=== PATIENT | female | born 1985 | race Caucasian/White ===

== ENCOUNTER → 2018-08-11 | Outpatient (CLI) | payer OTHER ==
[~2018-08-11] MED LIST: ALBU90OI INH; AMOX500 PO; HYDACE5 PO; IBUP800 PO; MULVITMINE PO; NAPR500 PO; OXYACE5T PO; POTCHL20ER PO; PROM25 PO; PROM6.25SY PO; RXCLIN PO; RXPROMSY PO; TRAM50 PO; Vistaril25 MG PO; Zofran Odt4 MG SL
== END ==
LOC: LAB EV 10:23 → LAB SHORT 10:23
DX: K52.9 Noninfective gastroenteritis and colitis, unspecified (principal)
CPT/HCPCS: 87086

== ENCOUNTER 2018-10-13 10:49 | Emergency (ER) | payer OTHER ==
[~2018-10-13] VITALS: Ht 154.9 cm; Wt 98.4 kg
[2018-10-13] MEDS ORDERED: Tamiflu75 MG PO (11:49)
== END 2018-10-13 11:54 | disposition home or self-care (01) ==
LOC: ER 10:49
DX: J11.1 Influenza due to unidentified influenza virus with other respiratory manifestations (principal)
CPT/HCPCS: 87081; 87147; 99283

== ENCOUNTER 2018-10-15 23:03 | Emergency (ER) | payer OTHER ==
[~2018-10-15] VITALS: Ht 157.5 cm; Wt 98.4 kg
[~2018-10-15 23:03] MED LIST changes: +Tamiflu75 MG PO
== END 2018-10-15 23:54 | disposition home or self-care (01) ==
LOC: ER 23:03
DX: M25.511 Pain in right shoulder (principal); F41.9 Anxiety disorder, unspecified; Z87.891 Personal history of nicotine dependence; Z79.899 Other long term (current) drug therapy; W19.XXXA Unspecified fall, initial encounter
CPT/HCPCS: 73030; 99283-25

== ENCOUNTER 2019-03-24 16:20 | Emergency (ER) | payer SELFPAY ==
[~2019-03-24] VITALS: Ht 154.9 cm; Wt 97.5 kg
== END 2019-03-24 19:40 | disposition left against medical advice (07) ==
LOC: ER 16:20
DX: Z53.21 Procedure and treatment not carried out due to patient leaving prior to being seen by health care provider (principal)

== ENCOUNTER 2020-12-23 12:46 | Emergency (ER) | payer OTHER ==
[~2020-12-23] VITALS: Ht 160 cm; Wt 104.3 kg
[2020-12-23] MEDS ORDERED: CYCL10 PO (14:38)
[2020-12-23] MEDS ORDERED: OMEP20ER PO (14:38)
[2020-12-23] MEDS ORDERED: EPIPEN0.3 MG/0.3 IM (15:18)
== END 2020-12-23 15:45 | disposition home or self-care (01) ==
LOC: ER 12:46
DX: T78.1XXA Other adverse food reactions, not elsewhere classified, initial encounter (principal); Z87.891 Personal history of nicotine dependence
CPT/HCPCS: 36415; 96374; 96375; 99283-25; J1200; J2930

== ENCOUNTER → 2022-08-24 | Outpatient (CLI) | payer OTHER ==
[~2022-08-24] MED LIST changes: +CYCL10 PO; +EPIPEN0.3 MG/0.3 IM; +OMEP20ER PO
[2022-08-24 16:35] LABS: BASOPHILS ABSOLUTE AUTO 0.02 K/mm3 (0.00-0.23); BASOPHILS PERCENT AUTO 0 % (0-2); EOSINOPHILS ABSOLUTE AUTO 0.08 K/mm3 (0.00-0.68); EOSINOPHILS PERCENT AUTO 1 % (0-6); Hematocrit 41.5 % (33.0-51.0); IMMATURE GRAN ABSOLUTE AUTO 0.02 K/mm3 (0.00-0.10); IMMATURE GRAN PERCENT AUTO 0 % (0-1); LYMPHOCYTES ABSOLUTE AUTO 1.98 K/mm3 (0.84-5.20); LYMPHOCYTES PERCENT AUTO 28 % (21-46); MONOCYTES ABSOLUTE AUTO 0.61 K/mm3 (0.16-1.47); MONOCYTES PERCENT AUTO 9 % (4-13); Mean Corpuscular HGB 30.9 pg (26.0-34.0); Mean Corpuscular HGB Conc 33.7 g/dL (31.5-36.5); Mean Corpuscular Volume 92 fL (80-100); Mean Platelet Volume 9.3 fL (9.1-12.4); NEUTROPHILS ABSOLUTE AUTO 4.43 K/mm3 (1.96-9.15); NEUTROPHILS PERCENT AUTO 62 % (41-73); Platelet Count 340 K/mm3 (150-400); RDW Coefficient Variation 12.6 % (11.7-14.2); RDW Standard Deviation 42.5 fL (35.1-46.3); Red Blood Cell Count 4.53 M/mm3 (3.80-5.20); White Blood Cell Count 7.14 K/mm3 (4.00-11.30)
[2022-08-24 16:49] LABS: Albumin, Blood 3.8 g/dL (3.4-5.0); Albumin/Globulin Ratio 0.9 (0.8-1.8); Bilirubin, Total 0.2 mg/dL (0.1-1.0); Calcium, Blood 9.3 mg/dL (8.5-10.1); Creatinine, Blood 0.6 mg/dL (0.40-1.00); Globulin, Blood 4.2 g/dL (2.2-4.0); Potassium, Blood 3.8 mmol/L (3.5-5.5)
== END | disposition home or self-care (01) ==
LOC: LAB 16:27 → LAB SHORT 16:27
PROVIDERS: Emergency Medicine
DX: R10.11 Right upper quadrant pain (principal)
CPT/HCPCS: 80053; 83690; 85025

== ENCOUNTER → 2022-10-12 | Outpatient (CLI) | payer OTHER | END | disposition home or self-care (01) | LOC: LAB SHORT 09:33 → LAB 09:33 | DX: R10.11 Right upper quadrant pain (principal) | CPT/HCPCS: 87338 ==

== ENCOUNTER 2023-03-22 13:46 | Emergency (ER) | payer OTHER ==
[~2023-03-22] VITALS: Ht 157.5 cm; Wt 102.5 kg
[2023-03-22 13:50] VITALS: BP 174/99
[2023-03-22] MEDS ORDERED: Vistaril25 MG PO (16:05)
== END 2023-03-22 16:10 | disposition home or self-care (01) ==
LOC: ER 13:46
DX: F41.9 Anxiety disorder, unspecified (principal); E11.9 Type 2 diabetes mellitus without complications; Z87.891 Personal history of nicotine dependence
CPT/HCPCS: 93005; 93010; 99284-25; A9270

== ENCOUNTER 2023-06-29 16:33 | Emergency (ER) | payer OTHER ==
[~2023-06-29] VITALS: Ht 157.5 cm; Wt 101.2 kg
[~2023-06-29 16:33] MED LIST changes: +MECL25 PO
[2023-06-29 16:45] VITALS: BP 156/91
[2023-06-29 17:12] LABS: BASOPHILS ABSOLUTE AUTO 0.04 K/mm3 (0.00-0.23); BASOPHILS PERCENT AUTO 1 % (0-2); EOSINOPHILS ABSOLUTE AUTO 0.09 K/mm3 (0.00-0.68); EOSINOPHILS PERCENT AUTO 1 % (0-6); Hematocrit 41.6 % (33.0-51.0); Hemoglobin 14.1 g/dL (11.5-16.0); IMMATURE GRAN ABSOLUTE AUTO 0.02 K/mm3 (0.00-0.10); IMMATURE GRAN PERCENT AUTO 0 % (0-1); LYMPHOCYTES ABSOLUTE AUTO 2.69 K/mm3 (0.84-5.20); LYMPHOCYTES PERCENT AUTO 35 % (21-46); MONOCYTES ABSOLUTE AUTO 0.58 K/mm3 (0.16-1.47); MONOCYTES PERCENT AUTO 8 % (4-13); Mean Corpuscular HGB 29.4 pg (26.0-34.0); Mean Corpuscular HGB Conc 33.9 g/dL (31.5-36.5); Mean Corpuscular Volume 87 fL (80-100); Mean Platelet Volume 9.5 fL (9.1-12.4); NEUTROPHILS ABSOLUTE AUTO 4.28 K/mm3 (1.96-9.15); NEUTROPHILS PERCENT AUTO 56 % (41-73); Platelet Count 374 K/mm3 (150-400); RDW Coefficient Variation 13.3 % (11.7-14.2); RDW Standard Deviation 41.7 fL (35.1-46.3)
[2023-06-29 17:37] LABS: Albumin, Blood 3.7 g/dL (3.4-5.0); Albumin/Globulin Ratio 0.8 (0.8-1.8); Bilirubin, Total 0.2 mg/dL (0.1-1.0); Bun/Creatinine Ratio 27.9 (12.0-20.0); Calcium, Blood 9.6 mg/dL (8.5-10.1); Creatinine, Blood 0.47 mg/dL (0.40-1.00); Globulin, Blood 4.5 g/dL (2.2-4.0); Potassium, Blood 3.6 mmol/L (3.5-5.5); Total Protein, Blood 8.2 g/dL (6.4-8.2)
[2023-06-29] MEDS ORDERED: METF500 PO (18:15)
== END 2023-06-29 21:09 | disposition home or self-care (01) ==
LOC: ER 16:33
PROVIDERS: Physician Assistant
DX: R20.2 Paresthesia of skin (principal); Z79.899 Other long term (current) drug therapy; Z79.84 Long term (current) use of oral hypoglycemic drugs; E11.9 Type 2 diabetes mellitus without complications; Z87.891 Personal history of nicotine dependence
CPT/HCPCS: 70450; 71046; 80053; 84484; 85025; 93005; 93010; 99284-25

== ENCOUNTER 2023-11-22 20:37 | Emergency (ER) | payer OTHER ==
[~2023-11-22] VITALS: Ht 157.5 cm; Wt 104.3 kg
[~2023-11-22 20:37] MED LIST changes: +METF500 PO
[2023-11-22 20:39] VITALS: BP 168/110
[2023-11-22] MEDS ORDERED: Acetaminophen 500 MG Tab PO ONE (22:30)
== END 2023-11-22 22:37 | disposition home or self-care (01) ==
LOC: ER 20:37
DX: S00.83XA Contusion of other part of head, initial encounter (principal); S60.221A Contusion of right hand, initial encounter; W22.8XXA Striking against or struck by other objects, initial encounter; Z79.899 Other long term (current) drug therapy; F41.9 Anxiety disorder, unspecified; Z87.891 Personal history of nicotine dependence
CPT/HCPCS: 70450; 73130; 99284-25; A9270

== ENCOUNTER 2024-01-22 13:31 | Emergency (ER) | payer OTHER ==
[~2024-01-22] VITALS: Ht 157.5 cm; Wt 104.3 kg
[2024-01-22] MEDS ORDERED: METF500 PO (15:28)
[2024-01-22] MEDS ORDERED: DULOXETINE HCL60 M1 PO (15:28)
[2024-01-22 16:29] VITALS: BP 167/91
== END 2024-01-22 16:29 | disposition home or self-care (01) ==
LOC: ER 13:31
DX: H53.8 Other visual disturbances (principal); Z87.891 Personal history of nicotine dependence; E11.9 Type 2 diabetes mellitus without complications; Z79.84 Long term (current) use of oral hypoglycemic drugs; Z79.899 Other long term (current) drug therapy
CPT/HCPCS: 99283